=== PATIENT | male | born 1990 | race Caucasian/White ===

== ENCOUNTER 2023-01-26 03:15 | Outpatient (CLI) | payer SELFPAY ==
[2023-01-26 12:46] LABS: Hemoglobin A1C 5.5 % (<5.7)
[2023-01-26 13:03] LABS: Calculated LDL 138 mg/dL (<100); Cholesterol 206 mg/dL (<200); HDL Cholesterol 55 mg/dL (40-60); Triglyceride 69 mg/dL (<150)
[2023-01-26 23:40] LABS: PSA, Screening 0.2 ng/mL (<=2.5)
== END 2023-01-26 03:16 | disposition home or self-care (01) ==
LOC: LOS 03:16
PROVIDERS: PCP Nurse Practitioner Family; Visit Provider Nurse Practitioner Family
DX: Z13.220 Encounter for screening for lipoid disorders (principal); Z13.1 Encounter for screening for diabetes mellitus; Z12.5 Encounter for screening for malignant neoplasm of prostate
CPT/HCPCS: 36415; 80061; 84153; 83036

== ENCOUNTER 2024-06-16 14:50 | Outpatient (CLI) | payer OTHER, SELFPAY ==
--- NOTE | 2024-06-16 12:00 | DI.RAD_ITS ---
Exam(s) XR TOE LT SECOND EXAM: XR TOE LT SECOND CLINICAL HISTORY: ? fx middle/distal phal,injury,[id number]. TECHNIQUE: 2D digital imaging was performed. Three views. COMPARISON: No exams were available for comparison FINDINGS: BONES: Nondisplaced fracture at the tuft of the distal phalanx of the 4th toe. No additional fractu res. No bony destructive lesion is seen. JOINTS: No dislocation present. SOFT TISSUE: Normal. IMPRESSION: Nondisplaced fracture of the tuft of the distal phalanx of the 4th toe. DATA REPOSITORY: RADIATION DOSE DELIVERED:
== END 2024-06-16 15:10 ==
PROVIDERS: PCP Nurse Practitioner Family; Visit Provider Family Medicine
DX: S92.424A Nondisplaced fracture of distal phalanx of right great toe, initial encounter for closed fracture (principal); X58.XXXA Exposure to other specified factors, initial encounter
CPT/HCPCS: 73660